=== PATIENT | female | born 1985 | race African-American/Black ===

== ENCOUNTER 2021-01-04 14:10 | Inpatient (IN) | payer BC ==
[2021-01-04] VITALS (9 sets, daily range): BP systolic 101–113; BP diastolic 55–72
[~2021-01-04] VITALS: Ht 154.9 cm; Wt 68.4 kg
--- NOTE | 2021-01-04 14:52 | PDOC1 ---
History and Physical Date of Admission Date of Admission DATE: 01/04/21 TIME: 14:52 Identification/Chief Complaint Chief Complaint Abdominal pain Source Source: Patient History of Present Illness History of Present Illness Ms Jean is a 35 yo w/ PMHx asthma who presented to [place] ED on 01/04/21 with complaints of upper abdominal pain has been constant, nonradiating, described as pressure, since 3 AM in the morning. Patient reports she took ibuprofen but she vomited shortly after-does not take nsaids daily. She is post- 4 months with normal spontaneous vaginal delivery and no complications. Was seen in ed for the same symptoms 1 month ago and was diagnosed with a UTI and was mildly symptomatic while as well. Last bowel movement was normal, brown, 4 AM. Ate spaghetti around 9 PM last night. Also reports pain is in the middle of her thoracic spine is going all the way down. States her friend had similar symptoms and she is concerned about her gallbladder. Is on Depo-Provera (LMP-4 mns ago/after ). Denies any alcohol use or recent binge drinking, no smoking or illicit drug use noted. EKG appears sinus rhythm at 66 bpm, no axis deviation, normal intervals, no T wave inversions, no ST elevations or ST depressions Basic metabolic panel within little normal laboratory limits, WBC 13.5, Hb 15.9, platelets 327, lipase 156, bilirubin normal AST elevated at 162 ALT elevated at 116, troponin 0 Chest x-ray with no concerning findings, right upper quadrant ultrasound with enlarged bile duct multiple stones concerning for cholecystitis due to biliary calculus. Call for general surgery consultation and transfer to for further treatment Past Medical History Pulmonary: Asthma Past Surgical History Past Surgical History: No pertinent history Family History Family History: High Cholestrol Social History Smoke: No ALCOHOL: none Drugs: None Current Medications Current Medications Current Medications Ringer's Solution 1,000 ml @ 100 mls/hr Q10H IV ; Start 01/04/21 at 15:00; Stop 01/05/21 at 00:59; Status UNV Ondansetron HCl (Zofran) 4 mg PRN Q6HRS PRN IVP NAUSEA/VOMITING; Start 01/04/21 at 15:00; Status UNV Morphine Sulfate (Morphine Sulfate) 1 mg PRN Q3HRS PRN IV PAIN; Start 01/04/21 at 15:00; Status UNV ROS General: YES: Fatigue, Malaise; No: Chills, Night Sweats, Appetite, Other PSYCHOLOGICAL ROS: No: Anxiety, Behavioral Disorder, Concentration difficultie, Decreased libido, Depression, Disorientation, Hallucinations, Hostility, Irritablity, Memory difficulties, Mood Swings, Obsessive thoughts, Physical abuse, Sexual abuse, Sleep disturbances, Suicidal ideation, Other Eyes: No Blurry vision, No Decreased vision, No Double vision, No Dry eyes, No Excessive tearing, No Eye Pain, No Itchy Eyes, No Loss of vision, No Photophobi a, No Scotomata, No Uses contacts, No Uses glasses, No Other HEENT: No: Heacaches, Visual Changes, Hearing change, Nasal congestion, Nasal discharge, Oral lesions, Sinus pain, Sore Throat, Epistaxis, Sneezing, Snoring, Tinnitus, Vertigo, Vocal changes, Other ALLERGY AND IMMUNOLOGY: No: Hives, Insect Bite Sensitivity, Itchy/Watery Eyes, Nasal Congestion, Post Nasal Drip, Seasonal Allergies, Other Hematological and Lymphatic: No: Bleeding Problems, Blood Clots, Blood Transfusions, Brusing, Night Sweats, Pallor, Swollen Lymph Nodes, Other ENDOCRINE: No: Breast Changes, Galactorrhea, Hair Pattern Changes, Hot Flashes, Malaise/lethargy, Mood Swings, Palpitations, Polydipsia/polyuria, Skin Changes, Temperature Intolerance, Unexpected Weight Changes, Other Breast: No New/Changing Breast Lumps, No Nipple changes, No Nipple discharge, No Other Respiratory: No: Cough, Hemoptysis, Orthopnea, Pleuritic Pain, Shortness of breath, SOB with excertion, Sputum Changes, Stridor, Tachypnea, Wheezing, Other Cardiovascular: No Chest Pain, No Palpitations, No Orthopnea, No Paroxysmal Noc. Dyspnea, No Edema, No Lt Headedness, No Other Gastrointestinal: Yes Nausea, Yes Abdominal Pain; No Vomiting, No Diarrhea, No Constipation, No Melena, No Hematochezia, No Other Genitourinary: No Dysuria, No Frequency, No Incontinence, No Hematuria, No Retention, No Discharge, No Urgency, No Pain, No Flank Pain, No Other, No , No , No , No , No , No , No Musculoskeletal: No Gait Disturbance, No Joint Pain, No Joint Stiffness, No Joint Swelling, No Muscle Pain, No Muscular Weakness, No Pain In:, No Swelling In:, No Other Neurological: No Behavorial Changes, No Bowel/Bladder ControlChng, No Confusion, No Dizziness, No Gait Disturbance, No Headaches, No Impaired Coord/balance, No Memory Loss, No Numbness/Tingling, No Seizures, No Speech Problems, No Tremors, No Visual Changes, No Weakness, No Other Skin: No Dry Skin, No Eczema, No Hair Changes, No Lumps, No Mole Changes, No Mottling, No Nail Changes, No Pruritus, No Rash, No Skin Lesion Changes, No Other, No Acne Physical Exam General: Alert, Oriented X3, Cooperative, mild distress HEENT: Atraumatic, PERRLA, EOMI, Mucous membr. moist/pink Lungs: Clear to auscultation, Normal air movement Heart: S1S2, RRR, no thrills, no rubs, no gallops, no murmurs Abdomen: Normal bowel sounds, Soft, No hepatosplenomegaly, No masses, Other (RUQ pain) Rectal Exam: not examined Extremities: No clubbing, No cyanosis, No edema, Normal pulses, No tenderness/swelling Skin: No rashes, No breakdown, No significant lesion Neuro: Normal gait, Normal speech, Strength at 5/5 X4 ext, Normal tone, Sensation intact, Cranial nerves 3-12 NL, Reflexes 2+ Psych/Mental Status: Mental status NL, Mood NL Vitals Vitals Vital Signs Date Time Temp Pulse Resp B/P (MAP) Pulse Ox O2 Delivery O2 Flow Rate FiO2 01/04/21 14:30 98.1 78 16 110/72 (85) Room Air 98.1 Images Images RUQ US: Ultrasound was used to evaluate the liver, gallbladder and right upper quadrant. Pancreas was normal in appearance although the tail of the pancreas was incompletely evaluated. Common duct was mildly dilated measuring 9.5 mm at the head of the pancreas. Liver was normal in appearance. Gallbladder was distended. There are multiple gallstones at the neck of the gallbladder. In most areas the gallbladder with wall was not thickened, possible mild gallbladder wall thickening towards the fundus. Right kidney is 10.9 cm in length without a mass or hydronephrosis. There was tenderness to palpation over the gallbladder. IMPRESSION: 1. Cholelithiasis, distended gallbladder. 2. Dilated bile duct. Chest radiograph: The cardiomediastinal silhouette is within normal limits. Lungs are clear. There are no significant pleural effusions. There is no pulmonary vascular congestion. No pneumothorax. No suspicious osseous abnormality. IMPRESSION: There is no acute cardiopulmonary process. VTE Prophylaxis Ordered VTE Prophylaxis Devices: Yes VTE Pharmacological Prophylaxi: No Assessment/Plan Assessment/Plan A/P: Abdominal pain - symptomatic cholelithiasis with what appears to be cholecystitis on my examination. WBC elevated. Zosyn q6hrs, surgery consulted Asthma - not currently symptomatic FEN - NPO PPX - SCDs FULL CODE Dispo - inpatient for cholecystitis. Labs reviewed, no further testing prior to planned surgery. COVID 19 negative. Justifications for Admission Abdominal Pain Indications Is patient in severe pain?: Yes Justification for admission: Patient has severe pain that requires (parenteral analgesic-please state analgesics and route) at least every 4 hours necessitating inpatient level of care. Is NPO status required?: Yes Justification for admission: Patient may require to be NPO for greater 24hours making it medically necessary to manage patient as inpatient. Other Justification RAD DANIELS MD Jan 04, 2021 14:52
[2021-01-04] MEDS ORDERED: IV RINGERS,LACTATED 1000ML 1,000 ML IV SCH ×2 (15:00→17:30)
[2021-01-04] MEDS ORDERED: BISACODYL 10 MG SUPP.RECT. PR PRN (15:00)
[2021-01-04] MEDS ORDERED: KETOROLAC 30 MG/ML VIAL. IV PRN (15:00)
[2021-01-04] MEDS ORDERED: MORPHINE SULFATE 2 MG/ML VIAL. IV PRN (15:00)
[2021-01-04] MEDS ORDERED: ONDANSETRON PF 4 MG/2 ML VIAL. IVP PRN (15:00)
[2021-01-04] MEDS ORDERED: FAMOTIDINE 20 MG/2 ML VIAL IVP ONE (15:30)
[2021-01-04] MEDS: FAMOTIDINE 20 MG/2 ML VIAL IVP SCH (17:06)
--- NOTE | 2021-01-04 17:06 | NUR ---
IVP pepcid 2100 dose non-administer since it was given this evening. Start with 01/05/21 AM dose
[2021-01-04] MEDS ORDERED: PROCHLORPERAZINE 10 MG/2 ML VIAL. IVP PRN (17:30)
[2021-01-04] MEDS ORDERED: MORPHINE SULFATE 2 MG/ML VIAL. IVP PRN (17:30)
[2021-01-04] MEDS ORDERED: HYDROmorphone 2 MG/ML VIAL IVP PRN (17:30)
[2021-01-04] MEDS ORDERED: fentaNYL PF VIAL 100 MCG/2 ML VIAL IVP PRN (17:30)
[2021-01-04] MEDS ORDERED: PROPOFOL 10 MG/ML (20ML) VIAL. IV ONE (17:42)
[2021-01-04] MEDS ORDERED: ONDANSETRON PF 4 MG/2 ML VIAL. ONE (17:42)
[2021-01-04] MEDS ORDERED: DEXAMETHASONE SOD PHOS 4 MG/ML VIAL ONE (17:42)
[2021-01-04] MEDS ORDERED: ROCURONIUM 50 MG/5 ML VIAL. ONE (17:42)
[2021-01-04] MEDS ORDERED: LIDOCAINE 2% PF 5 ML VIAL. ONE (17:42)
[2021-01-04] MEDS ORDERED: fentaNYL PF VIAL 100 MCG/2 ML VIAL ONE ×2 (17:42→19:28)
--- NOTE | 2021-01-04 17:49 | PDOC2 ---
CONSULT Date of Consult Date of Consult DATE: 01/04/21 TIME: 17:46 Reason for Consult Reason for Consult: Abdominal pain Referring Physician Referring Physician: Shabbir Identification/Chief Complaint Chief Complaint Abdominal pain Source Source: Chart review, Patient History of Present Illness Reason for Visit: 35-year-old female initially seen in the emergency department [place] with complaints of right upper quadrant abdominal pain nausea she has had off-and-on episodes for several months started when she was and has continued after delivery. She came in today to the emergency department because of increasing pain ultrasound was done of the right upper quadrant which shows gallstones within the gallbladder and mildly dilated common bile duct although her labs are all within normal limits Past Medical History Cardiovascular: No pertinent hx Pulmonary: Asthma GI: No pertinent hx Heme/Onc: No pertinent hx Hepatobiliary: No pertinent hx Psych: No pertinent hx Rheumatologic: No pertinent hx Infectious disease: No pertinent hx ENT: No pertinent hx Renal/: No pertinent hx Endocrine: No pertinent hx Dermatology: No pertinent hx Past Surgical History Past Surgical History: No pertinent history Family History Family History: High Cholestrol Social History No ALCOHOL: none Drugs: None Current Medications Current Medications Current Medications Ringer's Solution 1,000 ml @ 100 mls/hr Q10H IV Last administered on 01/04/21at 15:15; Start 01/04/21 at 15:00; Stop 01/05/21 at 00:59 Ondansetron HCl (Zofran) 4 mg PRN Q6HRS PRN IVP NAUSEA/VOMITING; Start 01/04/21 at 15:00 Morphine Sulfate (Morphine Sulfate) 1 mg PRN Q3HRS PRN IV PAIN; Start 01/04/21 at 15:00 Ketorolac Tromethamine (Toradol 30mg Vial) 30 mg PRN Q6HRS PRN IV PAIN Last administered on 01/04/21at 16:03; Start 01/04/21 at 15:00; Stop 01/09/21 at 14:59 Bisacodyl (Dulcolax Supp) 10 mg PRN DAILY PRN MS CONSTIPATION; Start 01/04/21 at 15:00 Piperacillin Sod/ Tazobactam Sod 3.375 gm/Sodium Chloride 50 ml @ 100 mls/hr Q6HRS IV ; Start 01/04/21 at 18:00 Famotidine (Pepcid Vial) 20 mg BID IVP ; Start 01/04/21 at 21:00 Famotidine (Pepcid Vial) 20 mg 1X ONCE IVP Last administered on 01/04/21at 16:02; Start 01/04/21 at 15:30; Stop 01/04/21 at 15:54; Status DC Fentanyl Citrate (Fentanyl 2ml Vial) 25 mcg PRN Q5MIN PRN IVP MILD PAIN 1-3; Start 01/04/21 at 17:30; Stop 01/05/21 at 02:00 Fentanyl Citrate (Fentanyl 2ml Vial) 50 mcg PRN Q5MIN PRN IVP MODERATE PAIN 4- 6; Start 01/04/21 at 17:30; Stop 01/05/21 at 02:00 Morphine Sulfate (Morphine Sulfate) 1 mg PRN Q10MIN PRN IVP SEVERE PAIN 7-10; Start 01/04/21 at 17:30; Stop 01/05/21 at 02:00 Ringer's Solution 1,000 ml @ 30 mls/hr Q24H IV ; Start 01/04/21 at 17:30; Stop 01/05/21 at 05:29 Hydromorphone HCl (Dilaudid) 0.5 mg PRN Q10MIN PRN IVP SEVERE PAIN 7-10, 2nd CHOICE; Start 01/04/21 at 17:30; Stop 01/05/21 at 02:00 Prochlorperazine Edisylate (Compazine) 5 mg PACU PRN PRN IVP NAUSEA, MRX1; Start 01/04/21 at 17:30; Stop 01/05/21 at 02:00 Ondansetron HCl (Zofran) 4 mg STK-MED ONCE .ROUTE ; Start 01/04/21 at 17:42; Stop 01/04/21 at 17:43; Status DC Propofol (Diprivan) 200 mg STK-MED ONCE IV ; Start 01/04/21 at 17:42; Stop 01/04/21 at 17:43; Status DC Lidocaine HCl (Lidocaine Pf 2% Vial) 5 ml STK-MED ONCE .ROUTE ; Start 01/04/21 at 17:42; Stop 01/04/21 at 17:43; Status DC Dexamethasone Sodium Phosphate (Decadron) 4 mg STK-MED ONCE .ROUTE ; Start 01/04/21 at 17:42; Stop 01/04/21 at 17:43; Status DC Fentanyl Citrate (Fentanyl 2ml Vial) 100 mcg STK-MED ONCE .ROUTE ; Start 01/04/21 at 17:42; Stop 01/04/21 at 17:43; Status DC Rocuronium [place] (Zemuron) 50 mg STK-MED ONCE .ROUTE ; Start 01/04/21 at 17:42; Stop 01/04/21 at 17:43; Status DC Allergies Allergies: Coded Allergies: No Known Drug Allergies (Unverified , 01/04/21) ROS Gastrointestinal: Yes Nausea, Yes Abdominal Pain Physical Exam General: Alert, Oriented X3, Cooperative, mild distress HEENT: Atraumatic Lungs: Clear to auscultation, Normal air movement Heart: Regular rate, No murmurs Abdomen: Normal bowel sounds, Soft, Other (Tender palpation right upper quadrant) Extremities: No edema Skin: No significant lesion Neuro: Normal speech Psych/Mental Status: Mental status NL Vitals VITALS Vital Signs Date Time Temp Pulse Resp B/P (MAP) Pulse Ox O2 Delivery O2 Flow Rate FiO2 01/04/21 17:35 98.8 71 16 116/79 98 Room Air 98.8 Assessment/Plan Assessment/Plan Acute cholecystitis plan laparoscopic cholecystectomy possible open cholecystectomy PAM ROBERTSON MD Jan 04, 2021 17:49
[2021-01-04] MEDS: PIPERACILLIN/TAZOBACTAM 3.375 GM in IV NORMAL SALINE 50ML 50 ML IV SCH (18:00)
[2021-01-04] MEDS ORDERED: IOHEXOL 300 MG/ML 50 ML VIAL. ONE (18:04)
[2021-01-04] MEDS ORDERED: BUPIVACAINE-EPI 0.25% 30 ML VIAL KIT. ONE (18:04)
[2021-01-04] MEDS ORDERED: SURGICEL HEMOSTAT 4X8 EACH. ONE (18:04)
[2021-01-04] MEDS ORDERED: GLYCOPYRROLATE 1 MG/5 ML VIAL. ONE (18:49)
[2021-01-04] MEDS ORDERED: NEOSTIGMINE METHYLSULFATE 5 MG/5 ML SYRINGE. ONE (18:49)
[2021-01-04] MEDS ORDERED: KETOROLAC 30 MG/ML VIAL. ONE (18:49)
[2021-01-04] MEDS ORDERED: SEVOFLURANE 61 TO 120 MINUTES. IH ONE (19:02)
--- NOTE | 2021-01-04 19:05 | PDOC4 ---
Operative Note Operative Note Date: January 042020 at 1902 Preoperative diagnosis: Acute cholecystitis Postoperative diagnosis: Same Procedure: Laparoscopic cholecystectomy with intraoperative cholangiograms Surgeon: Harrison Specimen: Gallbladder Dictation: Patient is a 35-year-old female with right upper quadrant abdominal pain ultrasound showing gallstones and mildly dilated common bile duct. Procedure of laparoscopic cholecystectomy was explained to the patient detail risk-benefit were also discussed including bleeding infection injury to intra- abdominal contents possible necessitating further open operations alternatives to this procedure also discussed with the patient who seemed to understand and gave both verbal and written consent to have procedure performed. Patient was taken to the operating room placed in the supine position general anesthesia was initiated once patient was sleeping intubated her abdomen was prepped and draped usual sterile fashion using ChloraPrep. An area just below the umbilicus was injected with quarter percent Marcaine with epinephrine incision was made 11 blade scalpel a varies needle was placed within the abdomen creating pneumoperitoneum once this was complete 11 mm port was placed in a 5 mm camera was placed within the abdomen. The abdomen was inspected no other abnormalities were noted. 5 mm port was placed in the epigastrium a 5 mm port was placed in the right midabdomen and 5 mm port was placed in the right lateral abdomen. The dome of the gallbladder is grasped retracted cephalad the infundibulum of the gallbladder is grasped retracted laterally exposing the triangle adherent tissues of the triangle were taken down exposing the cystic duct and cystic artery the cystic duct was clipped on the gallbladder side with 5 mm clip and partially open with Endo Meaghan scissors cholangiogram catheter was then placed to the anterior abdominal wall through a 14-gauge angiocatheter was placed within the cystic duct clipped into place and a cholangiogram was shot which showed good retrograde and antegrade flow of contrast material within the hepatic radicles and then to the duodenum. Cholangiogram catheter was then removed the cystic duct was doubly clipped and transected similarly the cystic artery was doubly clipped and transected the gallbladder is taken off the liver with hook electrocautery placed in Endo Catch bag removed and the umbilicus the right upper quadrant was irrigated and suctioned dry hemostasis deemed to be appropriate the pneumoperitoneum was reduced all ports were removed the fascial defect at the umbilicus was closed with a [id number] 0 Vicryl suture and the skin was reapproximated all port sites for subcuticular Monocryl Mastisol Steri-Strips and island dressings were applied. Patient was awakened and extubated in the operating room taken to recovery in stable condition all sponge instrument needle counts listed as correct estimated blood loss 10 mL. PAM ROBERTSON MD Jan 04, 2021 19:05
[2021-01-04] MEDS ORDERED: oxyCODONE/APAP 5/325 1 TAB TABLET PO PRN ×2 (19:15)
[2021-01-04] MEDS: fentaNYL PF VIAL 100 MCG/2 ML VIAL IVP PRN ×2 (19:29→19:40)
--- NOTE | 2021-01-04 19:52 | RAD ---
Cholangiogram fluoroscopy 01/04/2021 6:29 PM INDICATION: OR COMPARISON: CT abdomen/pelvis 12/08/2020 TECHNIQUE: Single fluoroscopic spot views are provided. Fluoroscopy time: Not provided FINDINGS: Fluoroscopy is provided for intraoperative use. There is contrast opacification of the intrahepatic b iliary tree, common bile duct, cystic duct and duodenum. IMPRESSION: 1. Cholangiogram in the OR utilizing fluoroscopy. 2. Please refer to the separate operative report for further details. Electronically signed by: Anastasia Segura MD (01/04/2021 7:49 PM) DINORAH
[2021-01-05] MEDS: KETOROLAC 15 MG/ML VIAL. IVP SCH ×2 (00:32→06:09)
[2021-01-05] MEDS: PIPERACILLIN/TAZOBACTAM 3.375 GM in IV NORMAL SALINE 50ML 50 ML IV SCH ×2 (00:34→06:06)
[2021-01-05 03:00] VITALS: BP 108/79
[2021-01-05 07:00] VITALS: BP 99/54
--- NOTE | 2021-01-05 08:53 | PDOC ---
SURGICAL PROGRESS NOTE DATE: 01/05/21 TIME: 08:52 Subjective Patient feeling much better this morning tolerating diet Vital Signs Vital Signs Date Time Temp Pulse Resp B/P (MAP) Pulse Ox O2 Delivery O2 Flow Rate FiO2 01/05/21 07:00 98.0 65 18 99/54 (69) 98 Room Air 98.0 01/04/21 20:05 10.0 I&O Intake and Output 01/05/21 07:00 Intake Total 1100 ml Output Total 20 ml Balance 1080 ml Intake Oral 300 ml IV Total 800 ml Output Estimated Blood Loss 20 ml # Voids 3 PATIENT HAS A VILLALOBOS: No General: Alert, Oriented X3, Cooperative, mild distress Abdomen: Normal bowel sounds, Soft, Other (Mild incisional tenderness wounds clean dry and intact) Assessment/Plan Status post laparoscopic cholecystectomy with intraoperative cholangiograms. Patient doing well tolerating diet stable from surgical standpoint to be discharged Justicifation of Admission Dx: Justifications for Admission: Justification of Admission Dx: N/A PAM ROBERTSON MD Jan 05, 2021 08:53
--- NOTE | 2021-01-05 09:36 | PDOC ---
[employer] PROGRESS NOTE Date of Service DOS: DATE: 01/05/21 TIME: 09:33 Chief Complaint Chief Complaint A/P: Abdominal pain - symptomatic cholelithiasis with what appears to be cholecystitis on my examination. WBC elevated. Zosyn q6hrs, surgery consulted Asthma - not currently symptomatic FEN - NPO PPX - SCDs FULL CODE Dispo - inpatient for cholecystitis. Labs reviewed, no further testing prior to planned surgery. COVID 19 negative. History of Present Illness History of Present Illness Ms Jean is a 35 yo w/ PMHx asthma who presented to [place] ED on 01/04/21 with complaints of upper abdominal pain has been constant, nonradiating, described as pressure, since 3 AM in the morning. Patient reports she took ibuprofen but she vomited shortly after-does not take nsaids daily. She is post- 4 months with normal spontaneous vaginal delivery and no complications. Was seen in ed for the same symptoms 1 month ago and was diagnosed with a UTI and was mildly symptomatic while as well. Last bowel movement was normal, brown, 4 AM. Ate spaghetti around 9 PM last night. Also reports pain is in the middle of her thoracic spine is going all the way down. States her friend had similar symptoms and she is concerned about her gallbladder. Is on Depo-Provera (LMP-4 mns ago/after ). Denies any alcohol use or recent binge drinking, no smoking or illicit drug use noted. EKG appears sinus rhythm at 66 bpm, no axis deviation, normal intervals, no T wave inversions, no ST elevations or ST depressions Basic metabolic panel within little normal laboratory limits, WBC 13.5, Hb 15.9, platelets 327, lipase 156, bilirubin normal AST elevated at 162 ALT elevated at 116, troponin 0 Chest x-ray with no concerning findings, right upper quadrant ultrasound with enlarged bile duct multiple stones concerning for cholecystitis due to biliary calculus. Call for general surgery consultation and transfer to [facility] for further treatment 3/: POD #1, s/p laparoscopic cholecystectomy. Seen by general surgery and stable to discharge from surgical standpoint. She is tolerating breakfast without nausea or vomiting. Greater than 30 minutes was spent managing the discharge of this patient. Vitals/I&O Vitals/I&O: Vital Signs Date Time Temp Pulse Resp B/P (MAP) Pulse Ox O2 Delivery O2 Flow Rate FiO2 01/05/21 07:00 98.0 65 18 99/54 (69) 98 Room Air 98.0 01/04/21 20:05 10.0 I & O 01/04/21 01/04/21 01/05/21 15:00 23:00 07:00 Intake Total 800 ml 300 ml Output Total 20 ml Balance 780 ml 300 ml Physical Exam General: Alert, Oriented X3, Cooperative, mild distress Heart: Regular rate, No murmurs Lungs: Clear Abdomen: Normal bowel sounds, Soft, Other (Mild incisional tenderness wounds clean dry and intact) Extremities: No edema Skin: No significant lesion Comment Review of Relevant I have reviewed the following items richie (where applicable) has been applied. Medications: Current Medications Medications (Trade) Dose Ordered Sig/Joie Route PRN Reason Start Time Stop Time Status Last Admin Dose Admin Ringer's Solution 1,000 ml @ 100 mls/hr Q10H IV 01/04/21 15:00 01/05/21 00:59 DC 01/04/21 15:15 Ketorolac Tromethamine (Toradol 30mg Vial) 30 mg PRN Q6HRS PRN IV PAIN 01/04/21 15:00 01/04/21 19:18 DC 01/04/21 16:03 Piperacillin Sod/ Tazobactam Sod 3.375 gm/Sodium Chloride 50 ml @ 100 mls/hr Q6HRS IV 01/04/21 18:00 01/05/21 06:06 Famotidine (Pepcid Vial) 20 mg 1X ONCE IVP 01/04/21 15:30 01/04/21 15:54 DC 01/04/21 16:02 Fentanyl Citrate (Fentanyl 2ml Vial) 50 mcg PRN Q5MIN PRN IVP MODERATE PAIN 4-6 01/04/21 17:30 01/05/21 02:00 DC 01/04/21 19:40 Cefazolin Sodium/ Dextrose 50 ml @ 100 mls/hr 1X ONCE IV 01/04/21 18:00 01/04/21 18:29 DC 01/04/21 18:23 Bupivacaine HCl/ Epinephrine Bitart (Sensorcain-Epi 0.25% Kit) 30 ml STK-MED ONCE .ROUTE 01/04/21 18:04 01/04/21 18:04 DC 01/04/21 18:36 Iohexol (Omnipaque 300 Mg/ml) 50 ml STK-MED ONCE .ROUTE 01/04/21 18:04 01/04/21 18:04 DC 01/04/21 18:36 Ketorolac Tromethamine (Toradol 15mg Vial) 15 mg Q6HRS IVP 01/05/21 00:00 01/10/21 00:00 01/05/21 06:09 Justifications for Admission Abdominal Pain Indications Is patient in severe pain?: Yes Justification for admission: Patient has severe pain that requires (parenteral analgesic-please state analgesics and route) at least every 4 hours necessitating inpatient level of care. Is NPO status required?: Yes Justification for admission: Patient may require to be NPO for greater 24hours making it medically necessary to manage patient as inpatient. Other Justification VAMSI KIRK MD Jan 05, 2021 09:36
[2021-01-05] MEDS: FAMOTIDINE 20 MG/2 ML VIAL IVP SCH (09:43)
--- NOTE | 2021-01-05 10:55 | PDOC3 ---
Discharge Summary Visit Information Date of Admission: Jan 04, 2021 Date of Discharge: Jan 05, 2021 Brief Hospital Course Allergies Allergies Coded Allergies Type Severity Reaction Last Updated Verified No Known Drug Allergies 01/04/21 No Vital Signs Vital Signs Date Time Temp Pulse Resp B/P (MAP) Pulse Ox O2 Delivery O2 Flow Rate FiO2 01/05/21 07:00 98.0 65 18 99/54 (69) 98 Room Air 98.0 01/04/21 20:05 10.0 Brief Hospital Course Ms. Jean is a 35 old female who presented with acute cholecystitis. Consultation placed to general surgery. She had laparoscopic cholecystectomy. Following her procedure she tolerated her diet without nausea or vomiting, and was stable to discharge home. Discharge Information Condition at Discharge: Improved Disposition/Orders: D/C to Home Justicifation of Admission Dx: Justifications for Admission: Justification of Admission Dx: N/A VAMSI KIRK MD Jan 05, 2021 10:55
[2021-01-05 11:00] VITALS: BP 117/58
--- NOTE | 2021-01-05 11:38 | NUR ---
Pt IV dc'd from left hand. Education given on post cholecystectomy. No concerns noted from pt. Did instruct her to follow up with Dr. Terry in 7-10 days. Instructed her to call on Wednesday to set this apt up, number provided. Family at bedside and will ambulate with pt and staff to car. RX was given to pt to take and fill at her choice of pharmacy. No questions/concerns voiced from pt.
== END 2021-01-05 11:42 | disposition home or self-care (01) | DRG 419 ==
LOC: 4 NORTH 14:35
PROVIDERS: ADMIT Internal Medicine; ATTEND Internal Medicine
PROC: BF131ZZ Fluoroscopy of Gallbladder and Bile Ducts using Low Osmolar Contrast (ICD-10-PCS; 2021-01-04)
PROC: 0FT44ZZ Resection of Gallbladder, Percutaneous Endoscopic Approach (ICD-10-PCS; principal; 2021-01-04 18:00)
DX: K80.00 Calculus of gallbladder with acute cholecystitis without obstruction (principal); J45.909 Unspecified asthma, uncomplicated; K82.8 Other specified diseases of gallbladder; Z20.822 Contact with and (suspected) exposure to COVID-19; Z87.440 Personal history of urinary (tract) infections
CPT/HCPCS: 74300; A4364; A4657; A4930; J0690; J1100; J1885; J2405; J2543; J2704; J2710; J3010; J3490; J7120; Q9967; G0378